=== PATIENT | female | born 1980 | race Caucasian/White ===

== ENCOUNTER 2020-10-17 12:19 | Emergency (ER) | payer MEDICARE, OTHER ==
[~2020-10-17] VITALS: Ht 172.7 cm; Wt 143.3 kg
[2020-10-17] MEDS ORDERED: FLUCONAZOLE200 MG PO (13:23)
[2020-10-17] MEDS ORDERED: DOXYCYCLINE HY100 MG PO (13:23)
[2020-10-17] MEDS ORDERED: LEVOTHYROXINE137 MC1 PO (13:23)
[2020-10-17] MEDS ORDERED: BACTRIM DS TAB1 EACH PO (14:54)
== END 2020-10-17 15:35 | disposition home or self-care (01) ==
LOC: ED 12:19
DX: L02.216 Cutaneous abscess of umbilicus (principal); G43.909 Migraine, unspecified, not intractable, without status migrainosus; Z88.6 Allergy status to analgesic agent; Z88.8 Allergy status to other drugs, medicaments and biological substances; Z88.1 Allergy status to other antibiotic agents; Z88.5 Allergy status to narcotic agent; Z91.040 Latex allergy status; Z79.899 Other long term (current) drug therapy
CPT/HCPCS: 10060; 99282-25